=== PATIENT | female | born 1985 | race Hispanic/Latino ===

== ENCOUNTER 2022-08-13 02:43 | Emergency (ER) | payer SELFPAY ==
[2022-08-13] MEDS ORDERED: Acetaminophen 500 MG TAB ONE (03:23)
[2022-08-13] MEDS ORDERED: Ondansetron ODT 4 MG TAB ONE (03:23)
[2022-08-13 04:00] LABS: Bilirubin Negative (Negative); Blood, Urine Negative (Negative); Clarity Turbid (Clear); Glucose, Urine (Dipstick) Normal (Negative); Ketone, Urine Negative (Negative); Leukocyte Negative Leu/uL (Negative); Nitrite Negative (Negative); Protein, Urine (Dipstick) 30 mg/dL (Neg-Trace); RBC/HPF 0-3 HPF (0-3); Specific Gravity, Urine 1.031 (1.002-1.036); Squamous Epithelial 0-3 HPF (0-3); Urobilinogen Normal mg/dL (Less than 2); WBC/HPF 0-3 HPF (0-3); pH, Urine 5.5 (5.0-9.0)
[2022-08-13 04:05] LABS: Bacteria/HPF 1+ HPF (None Seen)
[2022-08-13 04:33] LABS: SARS-CoV-2 NAA Rapid Test Not Detected (NotDetected)
[2022-08-13 05:15] LABS: #Lymphocytes 0.7 thou/uL (1.20-3.40); #Monocytes 0.8 thou/uL (0.11-0.59); #Neutrophils 15.7 thou/uL (1.40-6.50); %Eosinophils 0.2 % (0.0-10.0); %Lymphocytes 4.2 % (21.0-51.0); %Monocytes 4.8 % (0.0-10.0); %Neutrophils 90.8 % (42.0-75.0); Hemoglobin 14.6 g/dL (12.0-16.0); Mean Corpuscular HGB CONC 33.3 g/dL (32.0-36.0); Mean Corpuscular Hemoglobin 30.9 pg (27.0-31.0); Mean Corpuscular Volume 92.8 fl (78.0-98.0); Mean Platelet Volume 8.6 fL (7.4-10.4); Platelet Count 236 10x3/uL (130-400); Red Blood Cell (RBC) Count 4.74 mill/uL (4.20-5.40); White Blood Cell (WBC) Count 17.3 10x3/uL (4.8-10.8)
[2022-08-13 05:18] LABS: BHCG - Serum Negative (NEGATIVE); Pregs Control Background? CLEAR/WHITE (CLR/WHITE); Pregs Control Bar Appear? YES (CONTROL BAR)
[2022-08-13 05:24] LABS: ALT (SGPT) 22 U/L (8-55); AST (SGOT) 18 U/L (5-34); Albumin 4.4 g/dL (3.5-5.0); Alkaline Phosphatase 73 U/L (40-110); Anion Gap 12 mmol/L (10-20); BUN (Urea Nitrogen) 11 mg/dL (7.0-18.7); Bilirubin, Total 0.4 mg/dL (0.2-1.2); Calc. Creatinine Clearance 0 mL/min (70-130); Calcium 8.7 mg/dL (7.8-10.44); Carbon Dioxide 20 mmol/L (22-29); Chloride 107 mmol/L (98-107); Estimated GFR 110; Globulin 3.5 g/dL (2.4-3.5); Glucose 109 mg/dL (70-105); Lipase 42 U/L (8-78); Potassium 4.4 mmol/L (3.5-5.1); Protein, Total 7.9 g/dL (6.0-8.3); Sodium 135 mmol/L (136-145)
[2022-08-13] MEDS ORDERED: Morphine 4 MG/ML VIAL ONE (05:56)
[2022-08-13] MEDS ORDERED: Ketorolac Tromethamine 30 MG/ML VIAL ONE (06:21)
== END 2022-08-13 07:00 | disposition home or self-care (01) ==
LOC: ERS 02:43
DX: N39.0 Urinary tract infection, site not specified (principal); D72.829 Elevated white blood cell count, unspecified; Z20.822 Contact with and (suspected) exposure to COVID-19
CPT/HCPCS: 36415; 76705; 80053; 81003; 81015; 83690; 84703; 85025; 87086; 96361; 96374; J1885; J2270; Q0162

== ENCOUNTER 2022-11-23 15:44 | Outpatient (CLI) | payer OTHER ==
[2022-11-23 16:56] LABS: #Monocytes 0.4 10x3/uL (0.0-1.1); #Neutrophils 4.5 10x3/uL (1.5-8.4); %Basophils 0.3 % (0.0-2.0); %Eosinophils 0.5 % (0.0-6.0); %Lymphocytes 34.5 % (18.0-47.0); %Monocytes 4.9 % (0.0-10.0); %Neutrophils 59.5 % (40.0-75.0); Hematocrit 41.2 % (34.9-44.5); Mean Corpuscular Hemoglobin 29.8 pg (27.0-33.0); Mean Corpuscular Volume 87.7 fl (81.6-98.3); Mean Platelet Volume 10.2 fl (7.4-10.4); Platelet Count 282 10x3/uL (150-450); RBC Distribution Width 13.1 % (11.5-14.5); White Blood Cell (WBC) Count 7.5 10x3/uL (3.5-10.5)
[2022-11-23 17:15] LABS: ALT (SGPT) 26 U/L (8-55); AST (SGOT) 20 U/L (5-34); Albumin 4.8 g/dL (3.5-5.0); Alkaline Phosphatase 61 U/L (40-110); Anion Gap 16 mmol/L (10-20); BUN (Urea Nitrogen) 9 mg/dL (7.0-18.7); Bilirubin, Direct 0.2 mg/dL (0.1-0.3); Bilirubin, Total 0.4 mg/dL (0.2-1.2); Calc. Creatinine Clearance 0 mL/min (70-130); Calcium 9.2 mg/dL (7.8-10.44); Carbon Dioxide 21 mmol/L (22-29); Chloride 106 mmol/L (98-107); Estimated GFR 108; Glucose 89 mg/dL (70-105); Potassium 4.3 mmol/L (3.5-5.1); Sodium 139 mmol/L (136-145)
[2022-11-23 17:24] LABS: BHCG - Serum Negative (NEGATIVE)
[2022-11-23 17:25] LABS: Pregs Control Background? CLEAR/WHITE (CLR/WHITE); Pregs Control Bar Appear? YES (CONTROL BAR)
== END 2022-11-23 15:45 | disposition home or self-care (01) ==
LOC: LABBT 15:44
PROVIDERS: ATTEND Surgery
DX: Z01.812 Encounter for preprocedural laboratory examination (principal); K80.20 Calculus of gallbladder without cholecystitis without obstruction
CPT/HCPCS: 80048; 80076; 84703; 85025

== ENCOUNTER 2022-11-27 06:31 | Day surgery (SDC) | payer SELFPAY ==
[2022-11-27] MEDS ORDERED: Ondansetron PF 4 MG/2 ML Vial ONE ×2 (06:49→14:30)
[2022-11-27] MEDS ORDERED: Morphine 4 MG/ML VIAL ONE (06:49)
[2022-11-27 07:13] LABS: #Eosinphils 0.1 thou/uL (0.0-0.7); #Monocytes 0.3 thou/uL (0.11-0.59); #Neutrophils 2.9 thou/uL (1.40-6.50); %Basophils 0.2 % (0.0-1.0); %Lymphocytes 34.2 % (21.0-51.0); %Monocytes 5.4 % (0.0-10.0); Hematocrit 42.4 % (36.0-47.0); Hemoglobin 14.5 g/dL (12.0-16.0); Mean Corpuscular HGB CONC 34.2 g/dL (32.0-36.0); Mean Corpuscular Hemoglobin 29.9 pg (27.0-31.0); Mean Corpuscular Volume 87.4 fl (78.0-98.0); Mean Platelet Volume 9.9 fL (7.4-10.4); Platelet Count 277 10x3/uL (130-400); RBC Distribution Width 12.8 % (11.5-14.5); Red Blood Cell (RBC) Count 4.85 mill/uL (4.20-5.40); White Blood Cell (WBC) Count 4.9 10x3/uL (4.8-10.8)
[2022-11-27 07:40] LABS: ALT (SGPT) 15 U/L (8-55); AST (SGOT) 15 U/L (5-34); Albumin 4.4 g/dL (3.5-5.0); Alkaline Phosphatase 59 U/L (40-110); Anion Gap 14 mmol/L (10-20); BUN (Urea Nitrogen) 6 mg/dL (7.0-18.7); Bilirubin, Total 0.5 mg/dL (0.2-1.2); Calc. Creatinine Clearance 0 mL/min (70-130); Carbon Dioxide 21 mmol/L (22-29); Chloride 105 mmol/L (98-107); Estimated GFR 100; Globulin 3.5 g/dL (2.4-3.5); Glucose 103 mg/dL (70-105); Potassium 3.2 mmol/L (3.5-5.1); Protein, Total 7.9 g/dL (6.0-8.3); Sodium 137 mmol/L (136-145)
[2022-11-27] MEDS ORDERED: Indocyanine Green 25 MG/10 ML VIAL ONE (14:14)
[2022-11-27] MEDS ORDERED: Bupivacaine 0.25% HCL 30 ML VIAL ONE (14:14)
[2022-11-27] MEDS ORDERED: EPINEPHrine 1 MG/ML AMP ONE (14:14)
[2022-11-27] MEDS ORDERED: CEFAZOLIN 2 GM VIAL ONE (14:19)
[2022-11-27] MEDS ORDERED: Sodium Chloride 0.9% 100 ML ONE (14:19)
[2022-11-27] MEDS ORDERED: fentaNYL PF 100 MCG/2 ML SYRINGE ONE (14:22)
[2022-11-27] MEDS ORDERED: Dexamethasone 20 MG/5 ML VIAL ONE (14:30)
[2022-11-27] MEDS ORDERED: PROPOFOL 200 MG/20 ML VIAL ONE (14:30)
[2022-11-27] MEDS ORDERED: Rocuronium Bromide 10 MG/ML (10ML VIAL) ONE (14:30)
[2022-11-27] MEDS ORDERED: Lidocaine 1% PF 5 ML VIAL ONE (14:30)
[2022-11-27] MEDS ORDERED: SUGAMMADEX SODIUM 200 MG/2 ML VIAL ONE (14:48)
[2022-11-27] MEDS ORDERED: fentaNYL 50 mcg/mL 1 mL Vial ONE (15:33)
[2022-11-27] MEDS ORDERED: Morphine 2 MG/ML VIAL ONE (16:25)
[2022-11-27] MEDS ORDERED: HYDROcodone/Acetaminophen 5/325 mg Tablet ONE ×2 (17:23→17:46)
== END 2022-11-27 18:15 | disposition home or self-care (01) ==
LOC: ERS 06:31 → SDC/OP 11:35
PROVIDERS: ATTEND Surgery
PROC: 0FT44ZZ Resection of Gallbladder, Percutaneous Endoscopic Approach (ICD-10-PCS; principal; 2022-11-27)
DX: K80.10 Calculus of gallbladder with chronic cholecystitis without obstruction (principal)
CPT/HCPCS: 80053; 85025; 88304; 96374; 96375; C1776; J0171; J1100; J2270; J2272; J2405; J2704; J3010; J3490; S0020